=== PATIENT | male | born 1995 | race Caucasian/White ===

== ENCOUNTER 2017-03-31 06:50 | Emergency (ER) | payer MEDICAID ==
[~2017-03-31] VITALS: Ht 165.1 cm; Wt 56.7 kg
[~2017-03-31 06:50] MED LIST: DOCU100C5 PO; OMEP20EC6 PO
[2017-03-31 06:59] VITALS: BP 100/71
--- NOTE | 2017-03-31 07:13 | NUR ---
21/M BIB GIRLFRIEND C/O rt lower back pain , s/p bending this morning, radiating to his abd with nausea. HX OF ASTHMA. SKIN IS PINK/WARM/DRY; AAOX4 WITH EVEN AND STEADY GAIT; LUNGS CLEAR BL;PT DENIES ANY FEVER, CP, SOB, OR COUGH AT THIS TIME; PATIENT STATES PAIN OF 2/10 AT THIS TIME; PATIENT POSITIONED FOR COMFORT; HOB ELEVATED; BEDRAILS UP X2; BED DOWN. ER MD MADE AWARE OF PT STATUS.
--- NOTE | 2017-03-31 07:19 | NUR ---
Patient being evaluated by DR NAPOLES AT BEDSIDE.
[2017-03-31 07:28] VITALS: BP 63/71
--- NOTE | 2017-03-31 07:28 | NUR ---
Patient discharged with v/s stable. Written and verbal after care instructions given and explained. Patient verbalized understanding. Ambulatory with steady gait. All questions addressed prior to discharge. Advised to follow up with PMD.
== END 2017-03-31 07:28 | disposition home or self-care (01) ==
LOC: MED 06:50
DX: M54.5 Low back pain (principal); J45.909 Unspecified asthma, uncomplicated; K21.9 Gastro-esophageal reflux disease without esophagitis; Z79.899 Other long term (current) drug therapy
CPT/HCPCS: 99283

== ENCOUNTER 2020-12-19 15:27 | Emergency (ER) | payer BC, MEDICAID ==
[~2020-12-19] VITALS: Ht 165.1 cm; Wt 54.4 kg
[~2020-12-19 15:27] MED LIST changes: +OMEP-283 PO; -OMEP20EC6 PO
[2020-12-19 16:07] VITALS: BP 123/75
--- NOTE | 2020-12-19 16:13 | NUR ---
Patient ambulated to the restroom.
--- NOTE | 2020-12-19 16:14 | NUR ---
Patient ambulated to bed 9.
--- NOTE | 2020-12-19 16:15 | NUR ---
Patient is a 25 y/o male c/o left testicular pain that began today; pain associated with dysuria, nausea and vomiting. Pain is a "squeezing" pain and radiates to low back and abdomen, 9/10 on a pain scale. Patient tried taking Ibuprofen with minimal relief. Patient denies CP, SOB, lightheaded or dizziness, fever, chills, URI symptoms, sick contacts at home, or recent travel. Patient denies injury or trauma to the area. Rx: denies PMH: denies Allergies: denies
--- NOTE | 2020-12-19 16:20 | NUR ---
Dr. Morales at the bedside evaluating patient.
--- NOTE | 2020-12-19 16:28 | NUR ---
Patient provided with a urinal to collect urine specimen.
[2020-12-19] MEDS ORDERED: KETOROLAC 30 MG/ML VIAL IM ONE (16:30)
--- NOTE | 2020-12-19 16:40 | NUR ---
blood work and urine collected and given to labelling machine operator.
--- NOTE | 2020-12-19 16:45 | NUR ---
patient provided with a gown and instructed to undress completely from the waist down.
--- NOTE | 2020-12-19 16:46 | NUR ---
ultrasound at the bedside
[2020-12-19 16:48] LABS: BASOPHILS # (AUTO) 0.1 K/uL (0.00-0.22); BASOPHILS % (AUTO) 0.6 % (0.0-2.0); EOSINOPHILS # (AUTO) 0.1 K/uL (0-0.4); EOSINOPHILS % (AUTO) 0.7 % (0.0-4.0); HEMATOCRIT 46.4 % (36-52); HEMOGLOBIN 15.6 g/dL (12.0-18.0); LYMPHOCYTES # (AUTO) 1.6 K/uL (2.0-11.5); LYMPHOCYTES % (AUTO) 13.9 % (20.5-51.1); MEAN CORPUSCULAR HEMOGLOBIN 29 pg (27-31); MEAN CORPUSCULAR HGB CONC 34 g/dL (33-37); MEAN CORPUSCULAR VOLUME 85.2 fL (80-94); MONOCYTES # (AUTO) 0.7 K/uL (0.8-1.0); MONOCYTES % (AUTO) 6.5 % (1.7-9.3); NEUTROPHILS # (AUTO) 8.9 K/uL (1.8-7.7); NEUTROPHILS % (AUTO) 78.3 % (42.2-75.2); PLATELET COUNT (AUTO) 180 K/uL (140-450); RED BLOOD CELL COUNT(AUTO) 5.45 MIL/uL (4.20-6.10); RED CELL DISTRIBUTION WIDTH 14.2 % (11.6-13.7); WHITE BLOOD COUNT (AUTO) 11.3 K/uL (4.8-10.8)
[2020-12-19 16:49] LABS: APPEARANCE,URINE HAZY (CLEAR); BILIRUBIN,URINE NEGATIVE (NEGATIVE); BLOOD, URINE 3+ (NEGATIVE); COLOR,URINE YELLOW (YELLOW); LEUKOCYTE ESTERASE ,URINE NEGATIVE (NEGATIVE); NITRITE, URINE NEGATIVE (NEGATIVE); PH,URINE 6.5 (5.0-9.0); UGLUCOSE NEGATIVE (NEGATIVE)
[2020-12-19 17:05] LABS: ALBUMIN 4.5 g/dL (3.4-5.0); ANION GAP 9.5 (8-16); CARBON DIOXIDE 28.3 mmol/L (21-32); CREATININE 1.1 mg/dL (0.6-1.3); POTASSIUM 3.8 mmol/L (3.5-5.1); TOTAL BILIRUBIN 0.6 mg/dL (0.0-1.0)
--- NOTE | 2020-12-19 17:22 | NUR ---
Patient being taken to CT via wheelchair by echo vascular tech.
--- NOTE | 2020-12-19 17:36 | NUR ---
Patient brought back from CT via wheelchair by information technology security analyst.
[2020-12-19 17:40] LABS: RBC,URINE 50-80 /HPF (0-5)
[2020-12-19] MEDS ORDERED: ONDANSETRON 4 MG/2 ML VIAL IVP ONE (17:45)
[2020-12-19] MEDS ORDERED: NACL 0.9% 1,000 ML IV ONE (17:45)
--- NOTE | 2020-12-19 18:15 | NUR ---
Per Luba at the lab, she is able to add GC/Chlamydia to the current urine specimen and patient does not need to turn in additional urine.
[2020-12-19] MEDS ORDERED: MORPHINE SULFATE 4 MG/ML SYR IVP ONE (18:35)
[2020-12-19] MEDS ORDERED: AZITHROMYCIN 250 MG TAB PO ONE ×3 (18:35→19:00)
[2020-12-19] MEDS ORDERED: IBUP-2213 PO (18:51)
[2020-12-19] MEDS ORDERED: ACET-8386 PO (18:51)
[2020-12-19] MEDS ORDERED: TAMS0.4C96 PO (18:51)
[2020-12-19] MEDS ORDERED: ONDA-24 PO (18:51)
[2020-12-19] MEDS ORDERED: cefTRIAXone 1,000 MG VIAL ONE (18:55)
--- NOTE | 2020-12-19 19:23 | NUR ---
Report given to SUSIE Martinez for continuation of care.
--- NOTE | 2020-12-19 19:25 | NUR ---
PT CONFIRMED HE HAS SOMEONE HERE TO PICK HIM UP.
[2020-12-19 19:29] VITALS: BP 126/73
--- NOTE | 2020-12-19 19:29 | NUR ---
Patient discharged with v/s stable. Written and verbal after care instructions given and explained. Patient alert, oriented and verbalized understanding of instructions. Ambulatory with steady gait. All questions addressed prior to discharge. ID band removed. Patient advised to follow up with PMD. Rx of ZOFRAN, IBUPROFEN, NORCO, FLOMAX given. Patient educated on indication of medication including possible reaction and side effects. Opportunity to ask questions provided and answered.
--- NOTE | 2020-12-21 22:04 | NUR ---
LATE ENTRY- NORMAL SALINE 0.9% DISCONTINUED AT 2100
--- NOTE | 2020-12-21 22:07 | NUR ---
LATE ENTRY- ROCEPHIN DISCONTINUED AT 2100
== END 2020-12-19 19:29 | disposition home or self-care (01) ==
LOC: MED 15:27
DX: N20.0 Calculus of kidney (principal); I86.1 Scrotal varices; J45.909 Unspecified asthma, uncomplicated; K21.9 Gastro-esophageal reflux disease without esophagitis; Z79.899 Other long term (current) drug therapy; Z29.9 Encounter for prophylactic measures, unspecified
CPT/HCPCS: 36415; 74176; 76870; 80053; 81001; 85025; 87086; 87491; 96361; 96365; 96372; 96375; 99285; J0696; J1885; J2270; J2405; J7030; Q0092